=== PATIENT | female | born 1960 | race Caucasian/White ===

== ENCOUNTER 2017-04-05 07:11 | Day surgery (SDC) | payer OTHER ==
[2017-04-04 15:28] VITALS: BMI 28.3
[~2017-04-05 07:11] MED LIST: ACETAMINOPHEN 325 MG TABLET (FP) PO PRN; CHONDROITIN SU A/HYALUR SOD 1 KIT IO ONE; CIPROFLOXACIN HCL 0.3% OPHTH 2.5ML BOTTLE OP SCH; CYCLOPENTOLATE HCL 1% OPHTH SOLN 2 ML BOTTLE OP SCH; EPINEPHrine/PF 1 MG/1 ML (1:1,000) AMPULE IO ONE; FLURBIPROFEN 0.03% OPHTH SOLN 2.5 ML BOTTLE OP SCH; LIDOCAINE HCL 1% PRESERVATIVE FREE - 30ML VIAL IO ONE; LIDOCAINE HCL 2% JELLY (5 ML/TUBE) TP ONE; PHENYLEPHRINE 2.5% OPHTH SOLN 15 ML BOTTLE OP SCH; POVIDONE-IODINE 5% OPHTHALMIC PREP 30 ML SOLUTION OS ONE; TROPICAMIDE 1% OPHTH SOLN 15 ML BOTTLE OP SCH; VANCOMYCIN 500 MG VIAL (RESTRICTED TO ID ONLY) IVPB ONE
[2017-04-05] MEDS ORDERED: VANCOMYCIN 500 MG VIAL (RESTRICTED TO ID ONLY) ONE (07:27)
[2017-04-05] MEDS ORDERED: LIDOCAINE HCL 2% JELLY (5 ML/TUBE) ONE (07:27)
[2017-04-05] MEDS ORDERED: BSS (NA/CA/MG/K) BALANCED SALT SOLUTION OPHTH SOLN 15 ML BOTTLE ONE (07:27)
[2017-04-05] MEDS ORDERED: POVIDONE-IODINE 5% OPHTHALMIC PREP 30 ML SOLUTION ONE (07:27)
[2017-04-05] MEDS ORDERED: LIDOCAINE HCL/PF 1% SDV 5ML VIAL ONE (07:27)
[2017-04-05] MEDS ORDERED: EPINEPHrine/PF 1 MG/1 ML (1:1,000) AMPULE ONE (07:31)
[2017-04-05] MEDS ORDERED: SUCCINYLCHOLINE CHLORIDE 200 MG/10 ML VIAL ONE (07:32)
[2017-04-05] MEDS ORDERED: CIPROFLOXACIN 0.3% EYE DROPS 5 ML BOTTLE ONE (07:39)
[2017-04-05] MEDS ORDERED: TROPICAMIDE 1% OPHTH SOLN 15 ML BOTTLE ONE (07:39)
[2017-04-05] MEDS ORDERED: FLURBIPROFEN 0.03% OPHTH SOLN 2.5 ML BOTTLE ONE (07:39)
[2017-04-05] MEDS ORDERED: PHENYLEPHRINE 2.5% OPHTH SOLN 15 ML BOTTLE ONE (07:40)
[2017-04-05] MEDS ORDERED: CYCLOPENTOLATE HCL 1% OPHTH SOLN 2 ML BOTTLE ONE (07:40)
[2017-04-05] MEDS ORDERED: CYCLOPENTOLATE HCL 1% OPHTH SOLN 2 ML BOTTLE OS ONE ×3 (07:50→08:05)
[2017-04-05] MEDS ORDERED: FLURBIPROFEN 0.03% OPHTH SOLN 2.5 ML BOTTLE OS ONE ×3 (07:50→08:05)
[2017-04-05] MEDS ORDERED: PHENYLEPHRINE 2.5% OPHTH SOLN 15 ML BOTTLE OS ONE ×3 (07:50→08:05)
[2017-04-05] MEDS ORDERED: TROPICAMIDE 1% OPHTH SOLN 15 ML BOTTLE OS ONE ×3 (07:50→08:05)
[2017-04-05] MEDS ORDERED: CIPROFLOXACIN HCL 0.3% OPHTH 2.5ML BOTTLE OS ONE ×3 (07:50→08:05)
[2017-04-05] MEDS ORDERED: LIDOCAINE HCL 2% JELLY (5 ML/TUBE) TP ONE (07:59)
[2017-04-05] MEDS ORDERED: MIDAZOLAM HCL 2 MG/2 ML SINGLE DOSE VIAL ONE (08:18)
[2017-04-05] MEDS ORDERED: POVIDONE-IODINE 5% OPHTHALMIC PREP 30 ML SOLUTION OS ONE (08:22)
[2017-04-05] MEDS ORDERED: LIDOCAINE HCL 1% PRESERVATIVE FREE - 30ML VIAL IO ONE (08:31)
[2017-04-05] MEDS ORDERED: CHONDROITIN SU A/HYALUR SOD 1 KIT IO ONE (08:35)
[2017-04-05] MEDS ORDERED: EPINEPHrine/PF 1 MG/1 ML (1:1,000) AMPULE IO ONE ×2 (08:37→08:41)
[2017-04-05] MEDS ORDERED: BSS (NA/CA/MG/K) BALANCED SALT SOLUTION OPHTH SOLN 15 ML BOTTLE IO ONE (08:37)
[2017-04-05] MEDS ORDERED: VANCOMYCIN 500 MG VIAL (RESTRICTED TO ID ONLY) IVPB ONE (08:50)
--- NOTE | 2017-04-05 09:05 | SPEC ---
DATE OF OPERATION: DATE OF DICTATION: 04/05/2017 OPERATION: Phacoemulsification with posterior chamber intraocular lens implantation, left eye. Lens used: [id number], 21.5 diopter power, serial no. [id number]. PREOPERATIVE DIAGNOSIS: Cataract, left eye. POSTOPERATIVE DIAGNOSIS: Cataract, left eye. SURGEON: Ruslan Hawk MD ANESTHESIA: Topical MAC. COMPLICATIONS: None. PROCEDURE: The patient was brought to the operating room and correctly identified along with the operative site and the correct intraocular lens lr. The patient was then prepped and draped in the usual sterile fashion including 5% Betadine solution in the conjunctival sac and an eyelid drape. An eyelid speculum was then placed in the eye. A paracentesis port was created and approximately 0.5 mL of preservative-free lidocaine was then injected into the eye. Viscoelastic was then injected to inflate the anterior chamber. A temporal clear corneal wound was created. A continuous circular capsulorrhexis was performed. The nucleus was then hydrodissected with BSS and removed with phacoemulsification. The remaining cortical material was irrigated and aspirated. Viscoelastic was injected to inflate the capsular bag and the intraocular lens was then implanted into the capsular bag. The remaining Viscoelastic was irrigated and aspirated from the eye. The IOL was noted to be well centered and completely covered by the anterior capsulorrhexis. Topical vancomycin was placed and the eye patched and shielded. All wounds were tested and found to be watertight. No suture was placed. The eye was then shielded. The patient was then discharged from the operating room in stable condition. RUSLAN HAWK M.D. [id number]
[2017-04-05 11:35] VITALS: BP 122/71; PULSE 64; TEMP 97.6
== END 2017-04-05 10:10 | disposition home or self-care (01) ==
LOC: JASU-SURG 07:11
PROVIDERS: ATTEND Ophthalmology
PROC: 08RK3JZ Replacement of Left Lens with Synthetic Substitute, Percutaneous Approach (ICD-10-PCS; principal; 2017-04-05 08:00)
DX: H26.9 Unspecified cataract (principal)

== ENCOUNTER 2019-10-04 11:12 | Observation (INO) | payer OTHER ==
--- NOTE | 2019-10-04 12:25 | PDOC ---
History of Present Illness - General Chief Complaint: Chest Pain Stated Complaint: RT BREAST PAIN Time Seen by Provider: 10/04/19 12:23 - History of Present Illness Initial Comments: 10/04/19 12:52 58 y/o F hx of diabetes, acid reflux and possible prolapse( vaginal), presents to the ER with 3 days of right sided chest pain. Pain is intermittent, last a few minutes before dissipating. Pain is exacerbated by movement/lying on the affected side. somewhat relieved with rest. 7/10 in severity. Episodes have become more frequent as the days have progressed. Episodes are accompanied by a flusing sensation. She denies any cough, shortness of breath, nausea/vomiting, abdominal pain, back pain, diaphoresis, hx of blood clots, hemoptysis. Past History - Past Medical History Allergies/Adverse Reactions: Allergies Allergy/AdvReac Type Severity Reaction Status Date / Time No Known Drug Allergies Allergy Verified 10/04/19 11:25 Home Medications: Ambulatory Orders Ergocalciferol (Vitamin D2) [Vitamin D2] 125 unit PO WEEKLY 03/01/16 Multivitamin [Poly-Vitamin] 1 each PO DAILY 03/01/16 Omeprazole [Prilosec] 40 mg PO DAILY 03/01/16 Anemia: No Asthma: No Cancer: No Cardiac Disorders: No CVA: No COPD: No CHF: No Dementia: No Diabetes: Yes GI Disorders: No Disorders: No HTN: No Hypercholesterolemia: No Liver Disease: No Seizures: No Thyroid Disease: No - Immunization History Immunization Up to Date: Yes - Psycho Social/Smoking Cessation Hx Smoking History: Never smoked Have you smoked in the past 12 months: No Information on smoking cessation initiated: No Hx Alcohol Use: No Drug/Substance Use Hx: No Substance Use Type: None Review of Systems - Review of Systems Constitutional: No: Chills, Fever Respiratory: No: Cough, Hemoptysis Cardiac (ROS): Yes: Chest Pain. No: Lightheadedness ABD/GI: No: Nausea, Vomiting : No: Burning, Dysuria Musculoskeletal: No: Back Pain, Joint Pain Integumentary: No: Bruising, Change in Color Neurological: No: Headache, Tremors *Physical Exam - Vital Signs Last Vital Signs Temp Pulse Resp BP Pulse Ox 97.7 F 103 H 17 147/83 97 10/04/19 11:20 10/04/19 11:20 10/04/19 11:20 10/04/19 11:20 10/04/19 11:20 - Physical Exam 10/04/19 13:02 GENERAL: Awake, alert, and fully oriented, in no acute distress HEAD: No signs of trauma, normocephalic, atraumatic EYES: EOMI, sclera anicteric, conjunctiva clear ENT: Auricles normal inspection, hearing grossly normal, nares patent, oropharynx clear without exudates. Moist mucosa NECK: Normal ROM, supple, JVD, or masses LUNGS/CHEST: pain reproducible with palpation of right chest. No distress, speaks full sentences, clear to auscultation bilaterally. HEART: Regular rate and rhythm, normal S1 and S2, no murmurs, rubs or gallops, peripheral pulses normal and equal bilaterally. ABDOMEN: Soft, nontender, normoactive bowel sounds. No guarding, no rebound. No masses EXTREMITIES : Normal inspection, Normal range of motion, no edema. No clubbing or cyanosis NEUROLOGICAL: Cranial nerves II through XII grossly intact. Normal speech, normal gait, no focal sensorimotor deficits SKIN: Warm, Dry, normal turgor, no rashes or lesions noted ED Treatment Course - LABORATORY CBC & Chemistry Diagram: 10/04/19 12:00 10/04/19 12:00 Medical Decision Making - Medical Decision Making 10/04/19 13:05 58 y/o F hx of diabetes, acid reflux and possible prolapse( vaginal), presents to the ER with 3 days of right sided chest pain. ACS vs costochondritis vs pneumothorax vs pneumonia (less likely) EKG, cbc, cmp, cardiac profile, chext x-ray EK10/04/19 13:25 EKG: normal sinus rhythm, nonspecific ST abnormality moderate voltage criteria for LVH CXR clear lungs normal mediastinum and sharp angles. bones and soft tissues are intact. no acute chest pathology Troponin negative 10/04/19 13:32 Dr. Garcia contacted for cardiology consult. message left with service. Discharge - Follow up/Referral - Patient Discharge Instructions - Post Discharge Activity
--- NOTE | 2019-10-04 12:35 | PDOC ---
Attending Attestation - Resident Resident Name: JuneSantiagoknadi - ED Attending Attestation I have performed the following: I have examined & evaluated the patient, The case was reviewed & discussed with the resident, I agree w/resident's findings & plan, Exceptions are as noted - HPI HPI: 10/04/19 13:15 Ms. Epperson is a 58-year-old female with a history of diabetes on metformin and GERD. She presents emergency department with a complaint of right-sided chest pain. Her symptoms began 3 days ago. Initially had chest pain while doing nothing in particular. She described chest pain as sharp, intermittent, radiates to her shoulder, chest pain is not necessarily associated with exertion however it is relieved when she rests. Chest pain lasts several minutes. No prior episodes like this. Patient denies chest wall trauma Patient denies fevers, chills, cough Patient does report exertional shortness of breath, however this is an old finding She denies palpitation She denies recent travel, lower extremity edema States that when she exerts herself Is followed by a provider at [facility] (unsure of the name) - Physicial Exam PE: 10/04/19 12:35 GENERAL: The patient is in no acute distress. ENT: Ears normal, nares patent, oropharynx clear without exudates. Moist mucous membranes. NECK: Normal range of motion, supple LUNGS: Breath sounds equal, clear to auscultation bilaterally. No wheezes, and no crackles. HEART:Regular rate and rhythm, normal S1 and S2 without murmur, rub or gallop. ABDOMEN: Soft, nontender, normoactive bowel sounds. EXTREMITIES: Normal range of motion, no edema. NEUROLOGICAL: Cranial nerves II through XII grossly intact. Normal speech. No focal neurological deficits. SKIN: No rash noted MUSCULOSKELETAL: No chest wall tenderness to palpation 10/04/19 13:17 - Medical Decision Making 10/04/19 13:15 Differential includes cardiac ischemia, pe, asthma exacerbation, pneumonia, pneumothorax, pleural effusion, costochondritis, pericarditis, GERD. Laboratory Tests 10/04/19 10/04/19 12:00 12:00 WBC 8.3 Hgb 13.8 Hct 42.7 Plt Count 370 Sodium 141 Potassium 4.1 Chloride 108 H Carbon Dioxide 26 Anion Gap 6 L BUN 12.4 Creatinine 0.7 Creatine Kinase 95 Troponin I < 0.02 EKG: Normal sinus rhythm, rate of 86 bpm, axis normal, intervals are normal, no ST elevation or depression, T waves are upright with the exception of lead III or T wave is inverted Cardiology consult will place on observation for chest pain 10/04/19 13:18 Heart Score/ECG Review - History History: Moderately suspicious - Electrocardiogram EKG: Non specific repolarization disturbance - Risk Factors Risk Factors Heart Score: Yes Hx Diabetes
[2019-10-04 12:39] LABS: BASO % 1.2 % (0-2.0); EOS % 3.6 % (0-4.5); HEMATOCRIT 42.7 % (32.4-45.2); HEMOGLOBIN 13.8 GM/dL (10.7-15.3); LYMPH % 35.8 % (8-40); MCH 25.5 pg (25.7-33.7); MCHC 32.4 g/dl (32.0-36.0); MEAN CELL VOLUME 78.8 fl (80-96); MEAN PLT VOLUME 9.8 fl (7.5-11.1); NEUT % 52.4 % (42.8-82.8); PLATELET COUNT 370 K/MM3 (134-434); RBC 5.42 M/mm3 (3.60-5.2); WHITE BLOOD COUNT 8.3 K/mm3 (4.0-10.0)
[2019-10-04 13:12] LABS: ALBUMIN 4.1 g/dl (3.4-5.0); ALK PHOS 107 U/L (45-117); ANION GAP 6 MMOL/L (8-16); BILIRUBIN,TOTAL 0.2 mg/dL (0.2-1); BLOOD UREA NITROGEN 12.4 mg/dL (7-18); CALCIUM 9.6 mg/dL (8.5-10.1); CHLORIDE 108 mmol/L (98-107); CO2 26 mmol/L (21-32); CREATININE 0.7 mg/dL (0.55-1.3); GLUCOSE,RANDOM 115 mg/dL (74-106); MAGNESIUM 2.2 mg/dL (1.8-2.4); POTASSIUM 4.1 mmol/L (3.5-5.1); SGOT/AST 27 U/L (15-37); SGPT/ALT 55 U/L (13-61); SODIUM 141 mmol/L (136-145); TOT PROT 7.6 g/dl (6.4-8.2)
[2019-10-04] MEDS ORDERED: ASPIRIN 81 MG CHEWABLE TABLETS PO ONE (13:35)
[2019-10-04] MEDS ORDERED: ASPIRIN 81 MG CHEWABLE TABLETS ONE (13:37)
[2019-10-04 14:33] LABS: URINE APPEARANCE CLEAR; URINE BILIRUBIN NEGATIVE (NEGATIVE); URINE COLOR YELLOW; URINE GLUCOSE (UA) NEGATIVE (NEGATIVE); URINE KETONE NEGATIVE (NEGATIVE); URINE LEUK ESTERASE NEGATIVE (NEGATIVE); URINE NITRITE NEGATIVE (NEGATIVE); URINE PROTEIN NEGATIVE (NEGATIVE); URINE UROBILINOGEN 0.2 mg/dL (0.2-1.0)
[2019-10-04 14:37] LABS: INR 1.01 (0.83-1.09); PROTHROMBIN TIME (PATIENT) 11.9 SEC (9.7-13.0)
[2019-10-04 14:40] LABS: ACTIVATED PTT 34.6 SECONDS (25.2-36.5)
--- NOTE | 2019-10-04 15:15 | ECHO ---
Name: JOSHUA CHRIS Exam:Adult Echocardiogram Study Date: 10/04/2019 02:39 PM Age: 58 yrs Height: 62 in Weight: 150 lb BSA: 1.7 m2 MMode/2D Measurements & Calculations IVSd: 0.80 cm Ao root diam: 2.5 cm LVIDd: 3.9 cm LA dimension: 2.9 cm LVIDs: 2.7 cm LVPWd: 0.81 cm LVPWs: 0.97 cm EDV(Teich): 65.3 ml ESV(Teich): 27.8 ml LVOT diam: 2.0 cm Doppler Measurements & Calculations MV E max akash: 63.2 cm/sec Ao V2 max: 120.7 cm/sec MV A max akash: 59.2 cm/sec Ao max P.9 mmHg MV E/A: 1.1 MV dec time: 0.21 sec JOSESITO(V,D): 2.2 cm2 LV V1 max P.1 mmHg TR max akash: 213.1 cm/sec LV V1 max: 88.4 cm/sec TR max P.2 mmHg PA V2 max: 127.6 cm/sec Med Peak E' Akash: 9.1 cm/sec PA max P.5 mmHg Med E/e': 6.9 Lat Peak E' Akash: 9.4 cm/sec Lat E/e': 6.7 Left Ventricle Left ventricular systolic function is normal. Ejection Fraction = 55-60%. The transmitral spectral Do ppler flow pattern is normal for age. Right Ventricle The right ventricle is normal in size and function. Atria Normal left and right atrial size and function. Mitral Valve The mitral valve is normal in structure and function. There is no mitral valve stenosis. There is no mitral regurgitation noted. Tricuspid Valve The tricuspid valve is normal in structure and function. There is mild tricuspid regurgitation. Right ventricular systolic pressure is normal. Aortic Valve The aortic valve opens well. No hemodynamically significant valvular aortic stenosis. No aortic regur gitation is present. Pulmonic Valve The pulmonic valve is not well seen, but is grossly normal. There is no pulmonic valvular stenosis. T here is no pulmonic valvular regurgitation. Great Vessels The aortic root is normal size. Pericardium/Pleura There is no pericardial effusion. Interpretation Summary Left ventricular systolic function is normal. Ejection Fraction = 55-60%. The right ventricle is normal in size and function. There is mild tricuspid regurgitation. Right ventricular systolic pressure is normal. There is no pericardial effusion. MD Brenner *Jose Miguel 10/04/2019 03:14 PM
--- NOTE | 2019-10-04 15:15 | HP ---
CHIEF COMPLAINT: Chest Pain PCP: Tiffanie Marcial HISTORY OF PRESENT ILLNESS: Pt is a 58 y/o F with a significant past medical history of NIDDM and GERd who presented to [facility] due to 3 days of intermittent right sided chest pain. Pt states she was not exerting herself when pain commenced. Denies any trauma to the area. Pt states she was not exerting herself when the pain began. Pain is described as intermittent, sharp, and a 7/10 at its peak. Pt has not taken any OTC medications for relief. Pain is not related to inspiration or deep palpation though pt endorses movement does make pain better. Denies lightheadedness, shortness of breath, nausea/vomiting or numbness/tingling. This is tjhe first time patient has experienced these symptoms. PMH as above FH- Mother DM SocialHx- Denies T/A/D SurgHx- Cataract surgery NKDA ER course was notable for: (1) Trop neg (2) EKG NL sinus, nl intervals, Vent Rate 86. LVH appreciated on EKG. (3) Allergies No Known Drug Allergies Allergy (Verified 10/04/19 11:25) HOME MEDICATIONS: Home Medications Medication Instructions Recorded Ergocalciferol (Vitamin D2) 125 unit PO WEEKLY 03/01/16 [Vitamin D2] Multivitamin [Poly-Vitamin] 1 each PO DAILY 03/01/16 Omeprazole [Prilosec] 40 mg PO DAILY 03/01/16 REVIEW OF SYSTEMS CONSTITUTIONAL: Absent: fever, chills, diaphoresis, generalized weakness, malaise, loss of appetite, weight change HEENT: Absent: rhinorrhea, nasal congestion, throat pain, throat swelling, difficulty swallowing, mouth swelling, ear pain, eye pain, visual changes CARDIOVASCULAR: present chest pain RESPIRATORY: Absent: cough, shortness of breath, dyspnea with exertion, orthopnea, wheezing, stridor, hemoptysis GASTROINTESTINAL: Absent: abdominal pain, abdominal distension, nausea, vomiting, diarrhea, constipation, melena, hematochezia GENITOURINARY: Absent: dysuria, frequency, urgency, hesitancy, hematuria, flank pain, genital pain MUSCULOSKELETAL: Absent: myalgia, arthralgia, joint swelling, back pain, neck pain SKIN: Absent: rash, itching, pallor HEMATOLOGIC/IMMUNOLOGIC: Absent: easy bleeding, easy bruising, lymphadenopathy, frequent infections ENDOCRINE: Absent: unexplained weight gain, unexplained weight loss, heat intolerance, cold intolerance NEUROLOGIC: Absent: headache, focal weakness or paresthesias, dizziness, unsteady gait, seizure, mental status changes, bladder or bowel incontinence PSYCHIATRIC: Absent: anxiety, depression, suicidal or homicidal ideation, hallucinations. PHYSICAL EXAMINATION Vital Signs - 24 hr 10/04/19 11:20 Temperature 97.7 F Pulse Rate 103 H Respiratory 17 Rate Blood Pressure 147/83 O2 Sat by Pulse 97 Oximetry (%) GENERAL: NAD. HEAD: Normal with no signs of trauma. EYES: EARS, NOSE, THROAT: MMM NECK: Supple No JVD LUNGS: CTA b/l HEART: RRR, S1S2 ABDOMEN: Soft, NDNT MUSCULOSKELETAL: FROM throughout LOWER EXTREMITIES: No CCE NEUROLOGICAL: Cranial nerves II-XII intact. Normal speech. Normal gait. PSYCHIATRIC: Cooperative. Good eye contact. Appropriate mood and affect. SKIN: no rashes or lesions appreciated. Laboratory Results - last 24 hr 10/04/19 10/04/19 10/04/19 12:00 12:00 13:50 WBC 8.3 RBC 5.42 H Hgb 13.8 Hct 42.7 MCV 78.8 L MCH 25.5 L MCHC 32.4 RDW 14.0 Plt Count 370 MPV 9.8 Absolute Neuts (auto) 4.3 Neutrophils % 52.4 Lymphocytes % 35.8 Monocytes % 7.0 Eosinophils % 3.6 Basophils % 1.2 Nucleated RBC % 0 PT with INR 11.90 INR 1.01 PTT (Actin FS) 34.6 Sodium 141 Potassium 4.1 Chloride 108 H Carbon Dioxide 26 Anion Gap 6 L BUN 12.4 Creatinine 0.7 Est GFR (CKD-EPI)AfAm 111.47 Est GFR (CKD-EPI)NonAf 96.18 Random Glucose 115 H Calcium 9.6 Magnesium 2.2 Total Bilirubin 0.2 AST 27 ALT 55 Alkaline Phosphatase 107 Creatine Kinase 95 Troponin I < 0.02 Total Protein 7.6 Albumin 4.1 Urine Color Urine Appearance Urine pH Ur Specific [place] Urine Protein Urine Glucose (UA) Urine Ketones Urine Blood Urine Nitrite Urine Bilirubin Urine Urobilinogen Ur Leukocyte Esterase 10/04/19 13:50 WBC RBC Hgb Hct MCV MCH MCHC RDW Plt Count MPV Absolute Neuts (auto) Neutrophils % Lymphocytes % Monocytes % Eosinophils % Basophils % Nucleated RBC % PT with INR INR PTT (Actin FS) Sodium Potassium Chloride Carbon Dioxide Anion Gap BUN Creatinine Est GFR (CKD-EPI)AfAm Est GFR (CKD-EPI)NonAf Random Glucose Calcium Magnesium Total Bilirubin AST ALT Alkaline Phosphatase Creatine Kinase Troponin I Total Protein Albumin Urine Color Yellow Urine Appearance Clear Urine pH 5.0 Ur Specific [place] 1.012 Urine Protein Negative Urine Glucose (UA) Negative Urine Ketones Negative Urine Blood Negative Urine Nitrite Negative Urine Bilirubin Negative Urine Urobilinogen 0.2 Ur Leukocyte Esterase Negative ASSESSMENT/PLAN: Pt is a 58 y/o F with a significant past medical history of NIDDM and GERd who presented to [facility] due to 3 days of intermittent right sided chest pain. #Atypical Chest Pain, r/o ACS -1st trop neg. will repeat. -Echocardiogram -Cardiology Consult. Dr Garcia. Recmoris appreciated -EKG nl intervals, no ST-T wave inversions/.depressions. LVH appreciated -Will place in tele -D-Dimer given age, gender, and sudden onset chest pain. r/o P.E. #NIDDM -ISS, hold oral hypoglycemics #GERd -Omeprazole 40 daily #FEN No fluids Monitor Electrolytes diabetic Diet #DVT ppx: IRENE SQ Daily #Dispo; Tele Obs Visit type - Emergency Visit Emergency Visit: Yes ED Registration Date: 10/04/19 Care time: The patient presented to the Emergency Department on the above date and was hospitalized for further evaluation of their emergent condition. - New Patient This patient is new to me today: Yes Date on this admission: 10/04/19 - Critical Care Critical Care patient: No
--- NOTE | 2019-10-04 15:19 | PN ---
Teaching Attending Note Name of Resident: Dakota Rabago ATTENDING PHYSICIAN STATEMENT I saw and evaluated the patient. I reviewed the resident's note and discussed the case with the resident. I agree with the resident's findings and plan as documented. SUBJECTIVE: R sided chest pain, gripping, appears positional and on inspiration. No associated palpitations/lightheadedness/SOB. No history of chest wall trauma. OBJECTIVE: Afebrile, Hemodynamically stable. SpO2 97% RA. HR 103 Last Vital Signs Temp Pulse Resp BP Pulse Ox 97.7 F 103 H 17 147/83 97 10/04/19 11:20 10/04/19 11:20 10/04/19 11:20 10/04/19 11:20 10/04/19 11:20 HEENT - Atraumatic, Normocephalic. Heart - S1, S2, RRR, R chest wal tender +++ Lungs - Clear to auscultation Abdomen - soft, non-tender. Bowel Sounds normal. Extremities - No edema, no calf tenderness. Ervin - AO x 3. Tone/Power normal all extremities. Laboratory Results - last 24 hr 10/04/19 10/04/19 10/04/19 12:00 12:00 13:50 WBC 8.3 RBC 5.42 H Hgb 13.8 Hct 42.7 MCV 78.8 L MCH 25.5 L MCHC 32.4 RDW 14.0 Plt Count 370 MPV 9.8 Absolute Neuts (auto) 4.3 Neutrophils % 52.4 Lymphocytes % 35.8 Monocytes % 7.0 Eosinophils % 3.6 Basophils % 1.2 Nucleated RBC % 0 PT with INR 11.90 INR 1.01 PTT (Actin FS) 34.6 Sodium 141 Potassium 4.1 Chloride 108 H Carbon Dioxide 26 Anion Gap 6 L BUN 12.4 Creatinine 0.7 Est GFR (CKD-EPI)AfAm 111.47 Est GFR (CKD-EPI)NonAf 96.18 Random Glucose 115 H Calcium 9.6 Magnesium 2.2 Total Bilirubin 0.2 AST 27 ALT 55 Alkaline Phosphatase 107 Creatine Kinase 95 Troponin I < 0.02 Total Protein 7.6 Albumin 4.1 Urine Color Urine Appearance Urine pH Ur Specific [place] Urine Protein Urine Glucose (UA) Urine Ketones Urine Blood Urine Nitrite Urine Bilirubin Urine Urobilinogen Ur Leukocyte Esterase 10/04/19 13:50 WBC RBC Hgb Hct MCV MCH MCHC RDW Plt Count MPV Absolute Neuts (auto) Neutrophils % Lymphocytes % Monocytes % Eosinophils % Basophils % Nucleated RBC % PT with INR INR PTT (Actin FS) Sodium Potassium Chloride Carbon Dioxide Anion Gap BUN Creatinine Est GFR (CKD-EPI)AfAm Est GFR (CKD-EPI)NonAf Random Glucose Calcium Magnesium Total Bilirubin AST ALT Alkaline Phosphatase Creatine Kinase Troponin I Total Protein Albumin Urine Color Yellow Urine Appearance Clear Urine pH 5.0 Ur Specific [place] 1.012 Urine Protein Negative Urine Glucose (UA) Negative Urine Ketones Negative Urine Blood Negative Urine Nitrite Negative Urine Bilirubin Negative Urine Urobilinogen 0.2 Ur Leukocyte Esterase Negative Current Medications Generic Name Dose Route Start Last Admin Trade Name Freq PRN Reason Stop Dose Admin Enoxaparin Sodium 40 mg 10/05/19 10:00 Lovenox - SQ DAILY YUMI Insulin Aspart 1 vial 10/04/19 16:30 Novolog Vial Sliding Scale - SQ ACHS YUMI Protocol Home Medications Medication Instructions Recorded Omeprazole [Prilosec] 40 mg PO DAILY 03/01/16 metFORMIN HCL [Metformin HCl] 500 mg PO DAILY 10/04/19 ASSESSMENT AND PLAN: 58 year old female with history of DM 2, GERD, presents with intermittent R sided CP, that is worse on inspiration/change in position/palpation. 1. Atypical CP (R sided) ECG - SR rate 86, no acute ST/T wave changes. CXR - no acute cardiopulmonary abnormality. Telemonitoring Serial Cardiac Enzymes Echo - normal LV function, EF 55% Cardiology recommendation for out-patient Stress test appreciated. Given mildly pleuritic nature and sudden onset of patient's pain and positive DDIMER, will order CTA Chest to exclude PE. 2, DM 2 - Maintain on Novolog sliding scale. 3. GERD - Continue PPI. DVT Px - to receive 1 dose Lovenox SQ 1mg/kg. If CTA neg, will resume DVT Px dosing tomorrow.
--- NOTE | 2019-10-04 15:34 | CON.CARD ---
Consult Consult Specialty:: Cardiology for Dr. Gipson Referred by:: Hospitalist Medicine Reason for Consultation:: Chest pain - History of Present Illness Chief Complaint: Chest pain History of Present Illness: Ms. Epperson is a 58-year-old female with a history of diabetes on metformin and GERD presents emergency department with complaint of non-exertional sharp right- sided chest pain with radiation to right shoulder. Pain is exacerbated by movement/lying on the affected side. She denies worsening GOTTI, near or true syncope, palpitations, orthopnea, PND or LE edema. - History Source History Provided By: Patient Limitations to Obtaining History: No Limitations - Alcohol/Substance Use Hx Alcohol Use: No - Smoking History Smoking history: Never smoked Have you smoked in the past 12 months: No Home Medications - Allergies Allergies/Adverse Reactions: Allergies Allergy/AdvReac Type Severity Reaction Status Date / Time No Known Drug Allergies Allergy Verified 10/04/19 11:25 - Home Medications Home Medications: Ambulatory Orders Omeprazole [Prilosec] 40 mg PO DAILY 03/01/16 metFORMIN HCL [Metformin HCl] 500 mg PO DAILY 10/04/19 Ibuprofen 400 mg PO Q8H PRN 5 Days #15 tablet 10/05/19 Review of Systems - Review of Systems Cardiovascular: reports: Chest Pain Vital Signs: Vital Signs Temperature 97.7 F 10/04/19 11:20 Pulse Rate 103 H 10/04/19 11:20 Respiratory Rate 17 10/04/19 11:20 Blood Pressure 147/83 10/04/19 11:20 O2 Sat by Pulse Oximetry (%) 97 10/04/19 11:20 Constitutional: Yes: No Distress, Calm Neck: Yes: Supple Respiratory: Yes: Regular, CTA Bilaterally Gastrointestinal: Yes: Normal Bowel Sounds, Soft Cardiovascular: Yes: Regular Rate and Rhythm JVD: No Carotid Bruit: No Heart Sounds: Yes: S1, S2 Edema: No - Other Data Labs, Other Data: CBC, BMP 10/04/19 12:00 10/04/19 12:00 INR, PTT INR 1.01 (0.83-1.09) 10/04/19 13:50 Troponin, BNP 10/04/19 12:00 Troponin I < 0.02 Troponin, BNP 10/04/19 12:00 Troponin I < 0.02 Imaging - Results Chest X-ray: Report Reviewed (NAD) EKG: Report Reviewed (NSR @ 86 moderate LVH) Problem List - Problems (1) Atypical chest pain Code(s): R07.89 - OTHER CHEST PAIN (2) Type 2 diabetes mellitus Code(s): E11.9 - TYPE 2 DIABETES MELLITUS WITHOUT COMPLICATIONS Assessment/Plan 10/04/2019 Echo: Normal LV and RV size and fxn LVEF 55-60%, mild TR 1. Atypical chest pain 2. Type 2 DM 3. GERD 4. Vaginal prolaose P:1. Ruling out for [place] 2. Exercise treadmill stress testing with interpretable ECG, may perform as outpatient 3. Thank you for consultative opportunity
[2019-10-04] MEDS ORDERED: ENOXAPARIN NA (PORCINE) 80 MG/0.8 ML DISP.SYRIN SQ ONE ×2 (16:55→17:17)
[2019-10-04] MEDS: INSULIN SLIDING SCALE (NOVOLOG) 1 VIAL SQ SCH ×2 (17:04→23:33)
[2019-10-04 23:32] VITALS: BMI 27.5
[2019-10-05] MEDS: INSULIN SLIDING SCALE (NOVOLOG) 1 VIAL SQ SCH ×2 (06:03→12:00)
[2019-10-05 08:00] LABS: BASO % 0.7 % (0-2.0); EOS % 2.6 % (0-4.5); HEMATOCRIT 38.1 % (32.4-45.2); HEMOGLOBIN 12.5 GM/dL (10.7-15.3); LYMPH % 33.2 % (8-40); MCH 25.7 pg (25.7-33.7); MCHC 32.9 g/dl (32.0-36.0); MEAN PLT VOLUME 9.2 fl (7.5-11.1); MONO % 6.5 % (3.8-10.2); PLATELET COUNT 325 K/MM3 (134-434); RBC 4.89 M/mm3 (3.60-5.2); RDW 13.9 % (11.6-15.6); WHITE BLOOD COUNT 6.3 K/mm3 (4.0-10.0)
[2019-10-05 08:04] LABS: ALBUMIN 3.6 g/dl (3.4-5.0); BILIRUBIN,TOTAL 0.5 mg/dL (0.2-1); CALCIUM 9.1 mg/dL (8.5-10.1); CREATININE 0.6 mg/dL (0.55-1.3); INR 1.07 (0.83-1.09); MAGNESIUM 2.2 mg/dL (1.8-2.4); POTASSIUM 4.1 mmol/L (3.5-5.1); PROTHROMBIN TIME (PATIENT) 12.6 SEC (9.7-13.0); TOT PROT 6.7 g/dl (6.4-8.2)
[2019-10-05 08:05] LABS: ACTIVATED PTT 36.4 SECONDS (25.2-36.5)
[2019-10-05] MEDS ORDERED: ENOXAPARIN NA (PORCINE) 40 MG/0.4 ML DISP.SYRIN SQ SCH (10:00)
[2019-10-05 10:12] VITALS: BP 141/78; PULSE 73; TEMP 97.4
--- NOTE | 2019-10-05 12:47 | PN ---
Progress Note, Physician History of Present Illness: No further sharp right-sided chest pain, no events on telemetry. - Current Medication List Current Medications: Active Medications Insulin Aspart (Novolog Vial Sliding Scale -) 1 vial SQ [facility]; Protocol Last Admin: 10/05/19 06:03 Dose: Not Given - Objective Vital Signs: Vital Signs Temperature 97.4 F L 10/05/19 10:00 Pulse Rate 73 10/05/19 10:00 Respiratory Rate 18 10/05/19 10:00 Blood Pressure 141/78 10/05/19 10:00 O2 Sat by Pulse Oximetry (%) 98 10/05/19 04:00 Constitutional: Yes: No Distress, Calm Neck: Yes: Supple Cardiovascular: Yes: Regular Rate and Rhythm Respiratory: Yes: Regular, CTA Bilaterally Gastrointestinal: Yes: Normal Bowel Sounds, Soft Edema: No Labs: CBC, BMP 10/05/19 06:45 10/05/19 06:45 INR, PTT INR 1.07 (0.83-1.09) 10/05/19 06:45 - ....Imaging EKG: Report Reviewed (Tele: NSR) Problem List - Problems (1) Atypical chest pain Code(s): R07.89 - OTHER CHEST PAIN (2) Type 2 diabetes mellitus Code(s): E11.9 - TYPE 2 DIABETES MELLITUS WITHOUT COMPLICATIONS Assessment/Plan 10/04/2019 Echo: Normal LV and RV size and fxn LVEF 55-60%, mild TR 10/04/2019 Chest CTA: Negative for pulmonary embolism 1. Atypical chest pain 2. Type 2 DM 3. GERD 4. Vaginal prolapse P:1. Ruled out for [place] and PE 2. Exercise treadmill stress testing with interpretable ECG, may perform as outpatient 3. F/u in office
--- NOTE | 2019-10-05 12:48 | DS ---
Physical Exam: SUBJECTIVE: R sided chest pain improving. No associated palpitations/ lightheadedness/SOB. No history of chest wall trauma. OBJECTIVE: Afebrile, Hemodynamically stable. SpO2 98% RA. Last Vital Signs Temp Pulse Resp BP Pulse Ox 97.4 F L 73 18 141/78 98 10/05/19 10:00 10/05/19 10:00 10/05/19 10:00 10/05/19 10:00 10/05/19 04:00 HEENT - Atraumatic, Normocephalic. Heart - S1, S2, RRR, R chest wall tender + Lungs - Clear to auscultation Abdomen - soft, non-tender. Bowel Sounds normal. Extremities - No edema, no calf tenderness. Ervin - AO x 3. Tone/Power normal all extremities. Laboratory Results - last 24 hr 10/04/19 10/04/19 10/04/19 12:00 12:00 13:50 WBC 8.3 RBC 5.42 H Hgb 13.8 Hct 42.7 MCV 78.8 L MCH 25.5 L MCHC 32.4 RDW 14.0 Plt Count 370 MPV 9.8 Absolute Neuts (auto) 4.3 Neutrophils % 52.4 Lymphocytes % 35.8 Monocytes % 7.0 Eosinophils % 3.6 Basophils % 1.2 Nucleated RBC % 0 PT with INR 11.90 INR 1.01 PTT (Actin FS) 34.6 D-Dimer Sodium 141 Potassium 4.1 Chloride 108 H Carbon Dioxide 26 Anion Gap 6 L BUN 12.4 Creatinine 0.7 Est GFR (CKD-EPI)AfAm 111.47 Est GFR (CKD-EPI)NonAf 96.18 POC Glucometer Random Glucose 115 H Calcium 9.6 Phosphorus Magnesium 2.2 Total Bilirubin 0.2 AST 27 ALT 55 Alkaline Phosphatase 107 Creatine Kinase 95 Troponin I < 0.02 Total Protein 7.6 Albumin 4.1 Urine Color Urine Appearance Urine pH Ur Specific [place] Urine Protein Urine Glucose (UA) Urine Ketones Urine Blood Urine Nitrite Urine Bilirubin Urine Urobilinogen Ur Leukocyte Esterase 10/04/19 10/04/19 10/04/19 13:50 16:14 16:49 WBC RBC Hgb Hct MCV MCH MCHC RDW Plt Count MPV Absolute Neuts (auto) Neutrophils % Lymphocytes % Monocytes % Eosinophils % Basophils % Nucleated RBC % PT with INR INR PTT (Actin FS) D-Dimer 679 H Sodium Potassium Chloride Carbon Dioxide Anion Gap BUN Creatinine Est GFR (CKD-EPI)AfAm Est GFR (CKD-EPI)NonAf POC Glucometer 102 Random Glucose Calcium Phosphorus Magnesium Total Bilirubin AST ALT Alkaline Phosphatase Creatine Kinase Troponin I Total Protein Albumin Urine Color Yellow Urine Appearance Clear Urine pH 5.0 Ur Specific [place] 1.012 Urine Protein Negative Urine Glucose (UA) Negative Urine Ketones Negative Urine Blood Negative Urine Nitrite Negative Urine Bilirubin Negative Urine Urobilinogen 0.2 Ur Leukocyte Esterase Negative 10/04/19 10/04/19 10/05/19 21:50 23:20 02:30 WBC RBC Hgb Hct MCV MCH MCHC RDW Plt Count MPV Absolute Neuts (auto) Neutrophils % Lymphocytes % Monocytes % Eosinophils % Basophils % Nucleated RBC % PT with INR INR PTT (Actin FS) D-Dimer Sodium Potassium Chloride Carbon Dioxide Anion Gap BUN Creatinine Est GFR (CKD-EPI)AfAm Est GFR (CKD-EPI)NonAf POC Glucometer 147 Random Glucose Calcium Phosphorus Magnesium Total Bilirubin AST ALT Alkaline Phosphatase Creatine Kinase Troponin I < 0.02 < 0.02 Total Protein Albumin Urine Color Urine Appearance Urine pH Ur Specific [place] Urine Protein Urine Glucose (UA) Urine Ketones Urine Blood Urine Nitrite Urine Bilirubin Urine Urobilinogen Ur Leukocyte Esterase 10/05/19 10/05/19 10/05/19 05:52 06:45 06:45 WBC 6.3 RBC 4.89 Hgb 12.5 Hct 38.1 MCV 78.0 L MCH 25.7 MCHC 32.9 RDW 13.9 Plt Count 325 MPV 9.2 Absolute Neuts (auto) 3.6 Neutrophils % 57.0 Lymphocytes % 33.2 Monocytes % 6.5 Eosinophils % 2.6 Basophils % 0.7 Nucleated RBC % 0 PT with INR 12.60 INR 1.07 PTT (Actin FS) 36.4 D-Dimer Sodium Potassium Chloride Carbon Dioxide Anion Gap BUN Creatinine Est GFR (CKD-EPI)AfAm Est GFR (CKD-EPI)NonAf POC Glucometer 92 Random Glucose Calcium Phosphorus Magnesium Total Bilirubin AST ALT Alkaline Phosphatase Creatine Kinase Troponin I Total Protein Albumin Urine Color Urine Appearance Urine pH Ur Specific [place] Urine Protein Urine Glucose (UA) Urine Ketones Urine Blood Urine Nitrite Urine Bilirubin Urine Urobilinogen Ur Leukocyte Esterase 10/05/19 10/05/19 06:45 11:15 WBC RBC Hgb Hct MCV MCH MCHC RDW Plt Count MPV Absolute Neuts (auto) Neutrophils % Lymphocytes % Monocytes % Eosinophils % Basophils % Nucleated RBC % PT with INR INR PTT (Actin FS) D-Dimer Sodium 140 Potassium 4.1 Chloride 107 Carbon Dioxide 26 Anion Gap 6 L BUN 10.0 Creatinine 0.6 Est GFR (CKD-EPI)AfAm 117.27 Est GFR (CKD-EPI)NonAf 101.18 POC Glucometer 151 Random Glucose 91 Calcium 9.1 Phosphorus 4.0 Magnesium 2.2 Total Bilirubin 0.5 AST 22 ALT 47 Alkaline Phosphatase 95 Creatine Kinase Troponin I Total Protein 6.7 Albumin 3.6 Urine Color Urine Appearance Urine pH Ur Specific [place] Urine Protein Urine Glucose (UA) Urine Ketones Urine Blood Urine Nitrite Urine Bilirubin Urine Urobilinogen Ur Leukocyte Esterase Discharge Medications Medication Instructions Recorded Omeprazole [Prilosec] 40 mg PO DAILY 03/01/16 metFORMIN HCL [Metformin HCl] 500 mg PO DAILY 10/04/19 Ibuprofen 400 mg PO Q8H PRN 5 Days #15 tablet 10/05/19 Date of Admission:10/04/19 Date of Discharge: 10/05/19 Minutes to complete discharge: 35 Discharge Summary Problems reviewed: Yes Reason For Visit: ANGINA AT REST Current Active Problems Musculoskeletal chest pain (Acute) Hospital Course: 58 year old female with history of DM 2, GERD, presents with intermittent R sided CP, that is worse on inspiration/change in position/palpation. She was evaluated with ECG, serial cardiac enzymes, CXR, and overnight telemetry monitoring all of which were normal. She also underwent a CT Angiogram which was negative for pulmonary embolus. 1. Atypical CP (R sided), likely musculoskeletal (Costochondritis) ECG - SR rate 86, no acute ST/T wave changes. CXR - no acute cardiopulmonary abnormality. Telemonitoring - no adverse events Serial Cardiac Enzymes negative Echo - normal LV function, EF 55% CTA Chest - PE excluded, mild basilar atelectasis. Advised regarding Incentive Spirometry. Cardiology recommendation for out-patient Stress test appreciated. Advised to follow with Dr Garcia. 2, DM 2 - resume Metformin on DC 3. GERD - Continue PPI. Medically optimized for discharge home with cardiology follow up for out- patient stress test. Condition: Good - Instructions Diet, Activity, Other Instructions: You were admitted with Right sided chest pain. Cheat Xray, CT Chest, ECG and blood labwork were all normal, showing no cardiac cause for your chest pain. It is likely musculoskeletal pain and may benefit from anti-inflammatory medications like ibuprofen for a few days. You were observed on telemetry with no overnight abnormal rhythm events. Serial cardiac enzymes were checked and were normal. You were also evaluated by a banking services advisor Dr. Garcia who recommends out-patient stress test. You are advised to follow with Dr. Garcia in his office to schedule further testing. Referrals: Tiffanie Marcial MD [Primary Care Provider] - Henry Garcia MD [Staff Physician] - Disposition: HOME - Home Medications Comprehensive Discharge Medication List: Ambulatory Orders Omeprazole [Prilosec] 40 mg PO DAILY 03/01/16 metFORMIN HCL [Metformin HCl] 500 mg PO DAILY 10/04/19 Ibuprofen 400 mg PO Q8H PRN 5 Days #15 tablet 10/05/19 This patient is new to me today: No Emergency Visit: Yes ED Registration Date: 10/04/19 Care time: The patient presented to the Emergency Department on the above date and was hospitalized for further evaluation of their emergent condition. Critical Care patient: No - Discharge Referral Referred to [facility] Med P.C.: No
--- NOTE | 2019-10-07 11:49 | EKG ---
Test Reason : Blood Pressure : / mmHG Vent. Rate : 086 BPM Atrial Rate : 086 BPM P-R Int : 120 ms QRS Dur : 082 ms QT Int : 360 ms P-R-T Axes : 036 000 004 degrees QTc Int : 430 ms NORMAL SINUS RHYTHM MODERATE VOLTAGE CRITERIA FOR LVH, MAY BE NORMAL VARIANT NONSPECIFIC ST ABNORMALITY ABNORMAL ECG NO PREVIOUS ECGS AVAILABLE Confirmed by ANURADHA ACOSTA MD ([id number]) on 10/07/2019 11:49:17 AM Referred By: Confirmed By:ANURADHA ACOSTA MD
--- NOTE | 2019-10-08 12:52 | EKG ---
Test Reason : Blood Pressure : / mmHG Vent. Rate : 074 BPM Atrial Rate : 074 BPM P-R Int : 118 ms QRS Dur : 084 ms QT Int : 382 ms P-R-T Axes : 048 -07 001 degrees QTc Int : 424 ms NORMAL SINUS RHYTHM VOLTAGE CRITERIA FOR LEFT VENTRICULAR HYPERTROPHY ABNORMAL ECG WHEN COMPARED WITH ECG OF 04-OCT-2019 11:33, NO SIGNIFICANT CHANGE WAS FOUND Confirmed by MD ROBERTO, TIM ([id number]) on 10/08/2019 12:51:49 PM Referred By: Confirmed By:TIM MEJIA MD
== END 2019-10-05 13:57 | disposition home or self-care (01) ==
LOC: JER 11:12 → INTOOBSV 14:57 → UNDOADMOB 14:57 → JERBED 14:57 → J4W 23:13
DX: R07.89 Other chest pain (principal); E11.9 Type 2 diabetes mellitus without complications; Z79.84 Long term (current) use of oral hypoglycemic drugs; K21.9 Gastro-esophageal reflux disease without esophagitis; N81.10 Cystocele, unspecified
CPT/HCPCS: 36415; 71046-TC-FY; 71275-TC; 80053; 81003; 82550; 82962; 83735; 84100; 84484; 85025; 85379; 85610; 85730; 87086; 93005; 93010; 93306-TC; 96372; 99285-25; G0378; Q9967